=== PATIENT | female | born 1990 | race Caucasian/White ===

== ENCOUNTER 2025-08-24 00:01 | Inpatient (IN) | payer BC, SELFPAY ==
--- NOTE | 2025-08-10 13:20 | W.PM.PROC2 ---
Procedure Note - Detailed Date of Procedure 08/10/25 Pre-op Diagnosis Ovarian cyst Post-op Diagnosis Same Procedure Performed Laparoscopic right ovarian cystectomy and right salpingectomy. Surgeon Valentino Ramirez MD Anesthesia General Indications Ovarian cyst, very large Findings The right fallopian tube was stretched across the 11 cm a 12 cm ovarian cyst. Likely a paratubal cyst. Ovarian cyst in joint in the right ovary. The parenchyma of the fallopian tube could not be identified on the paratubal cyst. It was stretched out so thinly that it was visually undetectable. Tube was stretched to greater than 3 times normal length. The fimbriated edges could be seen on the surface of the cyst. Normal left fallopian tube and normal bilateral ovaries. Normal uterus. Description of Procedure The patient was taken to the operating room. She was prepped and draped in the dorsal lithotomy position after induction general anesthesia. A 5 mm incision was made with a scalpel on the abdominal skin in the left upper quadrant of the abdomen. A 5 mm trocar was inserted into the intra-abdominal cavity under direct visualization the scope. In the same fashion a 11 mm left lower quadrant trocar was inserted and a 11 mm infraumbilical trocar was inserted. Ovarian cyst on the right was conjoined to the right ovary. That connection and the mesosalpinx of the fallopian tube were cauterized transected with LigaSure cautery. The tube was then transected at the cornual area. The cyst was drained. It was effectively amputated placed in endobag and taken out the left lower quadrant trocar site. The pelvis was irrigated. The pneumoperitoneum was reduced. The trocars were removed. Skin was closed with subcuticular 4 micro. The patient's incisions were covered with Dermabond. She was taken recovery room in stable condition. Sponge lap and needle counts were correct x2. Complications No immediate complications Condition Stable Disposition Same day
[2025-08-24] VITALS (236 sets, daily range): BP systolic 75–141; BP diastolic 25–102; PULSE 62–124; RESP 16; TEMP 36.2–38.2; O2SAT 96–100; BMI 34.0
[2025-08-24 00:30] LABS: Hematocrit 32.4 % (37.0-47.0); Hemoglobin 10.6 g/dL (12.0-15.0); Immature Granulocyte Percent A 1.4 % (0-0.5); Lymphocytes Absolute Auto 2.84 K/mm3 (0.9-3.2); Mean Corpuscular HGB Conc 32.7 g/dl (32-36); Mean Corpuscular Hemoglobin 28.2 pg (26-34); Mean Corpuscular Volume 86.2 fl (80-100); Nucleated Red Blood Cells Absolute Auto 0.000 K/mm3 (0.0-0.012); Nucleated Red Blood Cells Perc 0.0 % (0.0-0.2); Platelet Count Result 291 k/mm3 (150-375); Red Blood Count 3.76 M/mm3 (4.2-5.4); White Blood Count 11.4 K/mm3 (4.5-10.0)
--- NOTE | 2025-08-24 00:32 | LDADM ---
This patient, Yin Kelly, was admitted to Labor/Delivery/Recovery 105 on 08/24/25 at 00:01. Plans for labor, pain management and were discussed with patient. Patient/family oriented to hospital policies and general routines including ID bracelet, bed and alarms, visiting hours, pain management, procedures, bathroom and other care routines, personal items, smoking policy, room service/diet and guest tray routines, security routines, and visiting hours. Patient/Family are encouraged to report perceived risks to care and to ask questions if they do not understand what they are told or what they should do. See OBIX for further documentation.
[2025-08-24 01:07] LABS: Syphilis IgG/IgM Antibody Non-Reactive (Nonreactive)
[2025-08-24] MEDS: LACTATED RINGERS 1,000 ML 125 ML IV CONT (05:08)
[2025-08-24 07:37] LABS: Cannabinoid Screen Urine Negative (Negative)
--- NOTE | 2025-08-24 07:58 | WPDOBADMIT ---
Obstetrics - Admit Note Admission Note: record reviewed. No pertinent additions to the history and/or any subsequent changes in the physical findings that are not consistent with the expected course of the were found. Additions to the history and/or subsequent changes in the physical findings follow. admit for polyhydramnios, co-managing with
[2025-08-24] MEDS: ONDANSETRON INJ 4 MG/2 ML VIAL IV PUSH (09:08)
[2025-08-24] MEDS: PHENYLEPHRINE 1,000 MCG/10 ML SYRINGE 100 MCG IV PUSH ×2 (09:43→09:54)
--- NOTE | 2025-08-24 10:33 | PM.OBPNLAB ---
Pain Control Date/time seen: 08/24/25 10:33 Comments: FHR category 1 SVE /-2 AROM copious amounts of clear, odorless fluid, iupc placed anticipate vaginal delivery
[2025-08-24] MEDS: OXYTOCIN 30 UNITS/NS 500 ML 30 UNITS/500 ML BAG IV CONT (11:05)
--- NOTE | 2025-08-24 12:43 | P.PNAN_ITS ---
Anes - Initial Pre Proc Eval Procedure: Operation Date: 08/10/25 12:00 Proposed Procedures p ECV Procedure - Antione Galarza MD Date/Time: 08/24/25 12:43 Surgeon: Valentino Ramirez MD Pre Op Diagnosis: IOL Patient Data Age: 34 Gender: F Height: 1.55 m Weight: 81.81 kg Last Vital Signs Temp 36.2 C L 08/24/25 10:35 Pulse 85 08/24/25 12:30 BP 104/58 L 08/24/25 12:30 Pulse Ox 99 08/24/25 12:39 O2 Del Method Room Air 08/24/25 00:32 Allergies Allergy/AdvReac Type Severity Reaction Status Date / Time No Known Allergies Allergy Verified 08/24/25 01:46 Home Medications ?Medication ?Instructions ?Recorded ?Confirmed ?Type vit no.95-ferrous 1 tablet PO DAILY 08/01/25 08/24/25 History fumarate 28 mg-folic acid 800 mcg tablet () hydrocodone 5 mg-acetaminophen 325 1 - 2 tablet PO Q6H PRN pain #14 08/10/25 Rx mg tablet tabs Laboratory Tests 08/24/25 08/24/25 00:10 07:04 WBC 11.4 H K/mm3 (4.5-10.0) RBC 3.76 L M/mm3 (4.2-5.4) Hgb 10.6 L g/dL (12.0-15.0) Hct 32.4 L % (37.0-47.0) MCV 86.2 fl (80-100) MCH 28.2 pg (26-34) MCHC 32.7 g/dl (32-36) RDW 13.0 % (11.5-14.5) Plt Count 291 k/mm3 (150-375) MPV 9.0 fl (7.4-10.4) Immature Gran % (Auto) 1.4 H % (0-0.5) Neut % (Auto) 61.5 % (45.5-73.1) Lymph % (Auto) 25.0 % (18.3-44.2) [place] % (Auto) 10.1 H % (2.6-8.5) Eos % (Auto) 1.6 % (0-4.4) Baso % (Auto) 0.4 % (0.2-1.2) Lymph # (Auto) 2.84 K/mm3 (0.9-3.2) [place] # (Auto) 1.2 H K/mm3 (0.1-0.6) Eos # (Auto) 0.2 K/mm3 (0-0.3) Baso # (Auto) 0.0 K/mm3 (0.0-0.1) Abs Immat Gran (auto) 0.16 H K/mm3 (0.00-0.031) Absolute Neuts (auto) 7.0 H K/mm3 (1.3-6.7) Absolute Nucleated RBC 0.000 K/mm3 (0.0-0.012) Nucleated RBC % 0.0 % (0.0-0.2) Urine Opiates Screen Negative (Negative) Urine Methadone Screen Negative (Negative) Ur Barbiturates Screen Negative (Negative) Ur Phencyclidine Scrn Negative (Negative) Ur Amphetamine Screen Negative (Negative) U Benzodiazepines Scrn Negative (Negative) Urine Cocaine Screen Negative (Negative) U Cannabinoids Screen Negative (Negative) Ethyl Alcohol < 10 mg/dL (<10) Syphilis IgG/IgM Ab Non-reactive (Nonreactive) Blood Type B Positive Antibody Screen Negative Patient hx anesthesia problems: none Family hx anesthesia problems: none Results Review: All pre-operative results and documents have been reviewed as part of the pre- operative evaluation. [facility] Family History Family History Grandparent Skin cancer Breast cancer Mother Colon polyp Social History Social History Smoking status: Never smoker Alcohol intake: current Substance use: never Substance use type: marijuana Do You Feel Safe in your Home?: Yes Lack of Transportation: No Lack of Food: Never True Current Housing: I Have Housing Concerned About Future Housing: No Difficulty Paying Gas/Electric Bills: No Difficulty Paying for Meds: No Currently Unemployed: No Education: Bachelor's Degree Difficulty w/ Childcare or Family Care: No Spiritual care concerns: No Anes - Eval Final PreProcedure Day of Procedure 08/24/25 12:43 Patient weight: obese Neurological: alert and oriented ASA classification: II Emergent: no Anesthetic plan: proceed Anesthesia type and monitoring: regional epidural and standard monitoring Results Review: All pre-operative results and documents have been reviewed as part of the pre- operative evaluation. Informed Consent: The patient's anesthetic plan and its attendant risks and benefits were discussed with the patient/family/POA. Questions were solicited and answers provided to the satisfaction of the patient/family/POA.
[2025-08-24] MEDS: fentaNYL CITRATE INJ (*CRX) 100 MCG/2 ML VIAL 50 MCG IV PUSH ×2 (17:15→18:05)
--- NOTE | 2025-08-24 18:15 | PM.OBPRVD ---
OB - Vaginal Delivery Note Procedure Delivery date: 08/24/25 Events: Polyhydramnios Induction method: AROM, Per Misoprostol Protocol and Per Pitocin Protocol Delivery monitor: External FHT and Internal Uterine Route of delivery: Episiotomy description: None Laceration Description: Periurethral and Perineal - 2nd Degree Delivery repair: vicryl Specimen: Yes Quantitative Blood Loss (ml): 680 Anesthesia type: Epidural Disposition: Floor Narrative: mild uterine atony, exploration of clots, majority if the bleeding from vaginal tissues during repair [place] Baby Date of : 08/24/25 Time of : 17:46 Gestational Age by Date: 40 gender: Male presentation: vertex position: Left Occiput Anterior Placenta delivery description: Expressed Cord Vessel Description: 3 Vessels, Clamped/Cut and Delayed Cord Clamping score one minute: 9 score five minutes: 9
[2025-08-24] MEDS: OXYTOCIN 30 UNITS/NS 500 ML 30 UNITS/500 ML BAG 125 UNITS IV CONT (18:23)
--- NOTE | 2025-08-24 18:38 | S_PTH ---
PATIENT: Yin Kelly LOC: ANHOB2 U#:[id number] AGE/SX: 34/F ROOM: 279 RE08/24/[address]: Valentino Ramirez MD : 1990 BED: 00 DIS: 08/26/2025 SPEC #: [id number] RECD: 08/25/25 08:43 STATUS: REDDY REQ #: [id number] JAYMIE: 08/24/25 18:[address]: Yin Geiger DEPT: [facility] Surgical RECD BY: Jennifer Alvarez ENTERED: 08/25/25 08:43 SP TYPE: Surgical OTHR DR: MD Andrea Nowak, Tissues: A - Placenta Procedures: Hematoxylin and Eosin Stain Gross and Microscopic Level 5
[2025-08-24] MEDS: ceFAZolin 2 GM in SODIUM CHLORIDE 0.9% IV 50 ML 100 ML IVPB (19:10)
[2025-08-24 20:19] LABS: Hematocrit 28.0 % (37.0-47.0); Hemoglobin 9.2 g/dL (12.0-15.0); Immature Granulocyte Percent A 0.5 % (0-0.5); Lymphocytes Absolute Auto 1.29 K/mm3 (0.9-3.2); Mean Corpuscular HGB Conc 32.9 g/dl (32-36); Mean Corpuscular Hemoglobin 28.4 pg (26-34); Mean Corpuscular Volume 86.4 fl (80-100); Nucleated Red Blood Cells Absolute Auto 0.000 K/mm3 (0.0-0.012); Nucleated Red Blood Cells Perc 0.0 % (0.0-0.2); Platelet Count Result 241 k/mm3 (150-375); Red Blood Count 3.24 M/mm3 (4.2-5.4); White Blood Count 18.1 K/mm3 (4.5-10.0)
[2025-08-24] MEDS: ACETAMINOPHEN ELIXIR 325 MG/10.15 ML UDC 650 MG PO (22:08)
[2025-08-24] MEDS: LACTATED RINGERS 1,000 ML 999 ML IV CONT (23:59)
[2025-08-25] VITALS (15 sets, daily range): BP systolic 108–123; BP diastolic 51–66; PULSE 82–119; RESP 14–16; TEMP 36.4–37.3; O2SAT 97–100
[2025-08-25] MEDS: LACTATED RINGERS 1,000 ML 999 ML IV CONT (00:05)
[2025-08-25] MEDS: IRON SUCROSE COMPLEX 200 MG in SODIUM CHLORIDE 0.9% IV 100 ML 220 MG IVPB (00:10)
--- NOTE | 2025-08-25 00:23 | PC.NURSE ---
2359- RN called CNM. RN reported that pt had experienced a syncopal episode while on the bedside commode. RN reported that pt was immediately transferred to bed and was responsive. RN reported latest blood pressures to CN. RN reported that fundus was firm and at umbilicus. RN reported that no clots had been expressed and that bleeding on pad was scant. Orders received.
[2025-08-25 00:39] LABS: Hematocrit 28.3 % (37.0-47.0); Hemoglobin 9.3 g/dL (12.0-15.0)
--- NOTE | 2025-08-25 02:28 | PC.NURSE ---
235 Rapid called because patient lost consciousness while on commode, vitals taken and blood pressure was 60/30. patient was going in and out of consciousness while on commode. 2356 78/38 264 HR, patient transferred from the commode to the bed 2358 fluid bolus initiated 0000 vitals 99/66 98% 83 HR 0003 pressure bag applied to LR 0004 second IV started in right hand, CBC drawn 0005 vitals 103/72 99% 99 HR, LR new bag started, 200 mL from previous bag infused 0006 fundal check, firm at U and midline. patient was responsive and answering questions. 0007 vitals 109/57 100% 103 HR 0008 vitals 118/60 100% 99 HR 0010 iron infusion started in right hand, patient stable 0017 q5 minute vitals started 114/68 100% 103 HR, monitoring patient q15 minutes for 1 hour, q30 for 1 hour, then q1 hour.
[2025-08-25] MEDS: ACETAMINOPHEN ELIXIR 325 MG/10.15 ML UDC 650 MG PO ×2 (07:51→13:58)
--- NOTE | 2025-08-25 10:37 | PM.OBPNVD ---
OB - PN: Subj Subjective Date/time seen: 08/25/25 10:37 Interval history: PPD#1 s/p Doing well, pain controlled Had episode of dizziness on the way to the commode, feeling better this AM Tolerating general diet Voiding without issue OB - PN: Obj Data Labs 08/25/25 00:07 Labs: Laboratory Results - last 24 hr 08/24/25 08/25/25 20:14 00:07 WBC 18.1 H RBC 3.24 L Hgb 9.2 L 9.3 L Hct 28.0 L 28.3 L MCV 86.4 MCH 28.4 MCHC 32.9 RDW 12.9 Plt Count 241 MPV 8.8 Immature Gran % (Auto) 0.5 Neut % (Auto) 84.3 H Lymph % (Auto) 7.1 L [place] % (Auto) 7.9 Eos % (Auto) 0.0 Baso % (Auto) 0.2 Lymph # (Auto) 1.29 [place] # (Auto) 1.4 H Eos # (Auto) 0.0 Baso # (Auto) 0.0 Abs Immat Gran (auto) 0.09 H Absolute Neuts (auto) 15.3 H Absolute Nucleated RBC 0.000 Nucleated RBC % 0.0 OB - PN A/P Plan day: 1 Plan: routine care Time Spent With Patient Time: Total time spent is greater than 50% in coordination of care (as documented) at patient's floor/unit and/or counseling patient: Review of Systems Review of Systems: All systems reviewed & are unremarkable except as noted in HPI and below Exam Const: General: comfortable and no acute distress Orientation/consciousness: patient oriented x3 Resp: Effort & Inspection: normal respiratory effort
--- NOTE | 2025-08-25 10:55 | PC.NURSE ---
Introductions were made, then consulted with patient to assess needs related to . Discussed with mother her?plans to feed?her and the?experience so far. Per mother she has had some attempts at the breast over night but had just given a formula bottle. Advised her to call out with the next feeding if she decides to put baby to breast. If she she decides not to put baby to breast and she wants to protect her milk supply, she should use her breast pump. Resources provided for inpatient and outpatient services with the feeding sheet, mom/baby guide and name written on the communication board. Mother voiced understanding of information and will call if there is a request for assistance. Reported to the Primary RN.
[2025-08-25] MEDS: MULTIVITS W-FE,MIN CHEWABLE TABLET 1 TABLET PO (11:22)
--- NOTE | 2025-08-25 14:38 | WPDANLDPN2 ---
Anes-Prog Note L&D Date/Time: 08/25/25 14:38 Comfortable throughout: labor and delivery Neuraxial method: epidural Epidural/Spinal procedure site: clean & non-tender Neuro status: Neuro function grossly intact. Cardiovascular status: normal Respiratory status: normal Airway patency: baseline Mental status: baseline Post-Op hydration status: normal Vital Signs: Last Vital Signs Temp 37.3 C 08/25/25 11:45 Pulse 82 08/25/25 11:45 Resp 16 08/25/25 11:45 BP 108/51 L 08/25/25 11:45 Pulse Ox 98 08/25/25 11:45 O2 Del Method Room Air 08/24/25 21:45 Pain score (VAS): 0 I/O: Intake & Output 08/24/25 08/25/25 08/25/25 23:59 07:59 15:59 Intake Total 200 480 Output Total 860 Balance -860 200 480 Post-procedural complaints: none Patient feedback: Patient satisfied with anesthetic care.
--- NOTE | 2025-08-25 16:21 | PC.NURSE ---
[id number]. Called to patients room to assist with . Mom expressed that she has been bottle feeding so far due to her recovery so far after delivery not going as planned. She reports she would like to try to breastfeed infant now and he is due to feed at this time. After some skin to skin, we reviewed proper positioning and alignment and mom attempted to latch baby. Mom was unsuccessful at achieving a latch after 4-5 attempts was getting very frustrated at the breast. We offered infant 5 cc of formula to help calm him down and reattempted to latch infant. After the 5 cc, he was able to successfully latch and breast feed in the football position for 10 minutes. Mom reported a little bit of tenderness with the latch. Encouraged mother to keep infant awake and nursing at the breast for as long as baby desires. Mother taught to listen for swallowing during feedings. Reviewed using the blue feeding sheet to record time and duration of feeding. Mother voiced understanding of the education shared, to call for assistance if the infant does not latch or if there is discomfort with . Mom also had her Motif pump and we reviewed how to use it, and when she should pump if is unable to latch and feed for at least 15 minutes at the breast. name/number on communication board. Reported to the Primary RN.?
[2025-08-25] MEDS: IBUPROFEN SUSPENSION 200 MG/10 ML UDC 600 MG PO (16:25)
[2025-08-25] MEDS: TETANUS,DIPHTHERIA,AC PERTUSSIS ADULT (0.5 ML) BOOSTRIX IM (16:28)
[2025-08-26] MEDS: IBUPROFEN SUSPENSION 200 MG/10 ML UDC 600 MG PO (04:01)
[2025-08-26 07:05] VITALS: BP 106/56; PULSE 80; RESP 16; TEMP 37; O2SAT 99
--- NOTE | 2025-08-26 07:45 | P.PNOB_ITS ---
OB - PN: Subj Subjective Date/time seen: 08/26/25 07:45 Interval history: PPD#2 s/p Doing well, pain controlled Tolerating general diet Voiding without issue OB - PN: Obj Data Labs 08/25/25 00:07 OB - PN A/P Plan day: 2 Plan: routine care and discharge home Time Spent With Patient Time: Total time spent is greater than 50% in coordination of care (as documented) at patient's floor/unit and/or counseling patient: Review of Systems 2 Review of Systems: All systems reviewed & are unremarkable except as noted in HPI and below Exam 2 Const: General: healthy appearing and comfortable Chest: Chest palpation & inspection: normal inspection of the chest Resp: Effort & Inspection: normal respiratory effort Cardio: Rate: regular rate Back/Spine/Pelvis: Back: no CVA tenderness Skin: General skin exam: normal color
--- NOTE | 2025-08-26 07:47 | P.DS_ITS ---
DS: Admitting Diagnosis Discharge Date 08/26/25 Admitting Diagnosis IOL DS: Discharge Diagnosis Discharge Diagnosis (1) Vaginal delivery: Code(s): O80 - Encounter for full-term uncomplicated delivery Status: Acute OB - DS: Summary OB Procedures : None OB Procedures Intrapartum: Spontaneous Vag Delivery OB Procedures: : None Peripartum Data Laceration Description: Periurethral and Perineal - 2nd Degree Episiotomy description: None Procedures: Procedures Operation Date: 08/10/25 12:00 <No data on this case meets the specified criteria> Time Spent with Patient Time attestation: Total time spent providing and/or coordinating discharge services: DS: Data Data Completed and Pending Pending studies at discharge: Pending at discharge 08/24/25 18:38 Surgical [PTH] Routine Discharge Plan Discharge Attending physician on discharge: Valentino Ramirez Consulting providers: Yin Geiger Discharging Clinician: Yin Geiger Patient Disposition: Home Activity: pelvic rest Diet: regular Patient Instructions: Antibiotic Form Patient Language: [place] Citizen Stand Alone Forms: General Discharge Information Follow-up/Referrals: Valentino Ramirez MD [Physician, OB GYN PHYSICIAN ASSISTANT] Discharge Medications: New hydrocodone-acetaminophen 5-325 mg tablet 1 - 2 tablet PO Q6H PRN (Reason: pain) Qty: 14 0RF Continued PNV no.95-ferrous fumarate-FA [] 28 mg iron- 800 mcg tablet 1 tablet PO DAILY Date of admission: 08/24/25 00:01 Primary Care Provider: Andrea Bartlett Admitting Provider: Valentino Ramirez Attending physician on admission: Valentino Ramirez Condition: Stable
[2025-08-26] MEDS: ACETAMINOPHEN ELIXIR 325 MG/10.15 ML UDC 650 MG PO (07:55)
[2025-08-26] MEDS: MULTIVITS W-FE,MIN CHEWABLE TABLET 1 TABLET PO (07:59)
[2025-08-29 10:34] VITALS: BP 121/66; PULSE 88; RESP 18; TEMP 37.2; O2SAT 100
== END 2025-08-26 13:48 | disposition home or self-care (01) | DRG 807 ==
LOC: ANHLDR 00:05 → ANHOB2 21:27
PROVIDERS: Advanced Practice Midwife; Admitting Provider Obstetrics & Gynecology; PCP Family Medicine; Visit Provider Obstetrics & Gynecology
DX: O40.3XX0 Polyhydramnios, third trimester, not applicable or unspecified (principal); Z37.0 Single live birth; Z3A.39 39 weeks gestation of pregnancy; O70.1 Second degree perineal laceration during delivery; O71.82 Other specified trauma to perineum and vulva
CPT/HCPCS: 36415; 80307; 82077; 85014; 85018; 85025; 86593; 86850; 86900; 86901; 88307; 90715; A9270; J1756; J2371; J2405; J2590; J2795; J3010; J7120